=== PATIENT | female | born 1970 | race Caucasian/White ===

== ENCOUNTER 2018-09-28 10:04 | Outpatient (RCR) | payer SELFPAY ==
--- NOTE | 2018-09-30 07:40 | HP.OTEVAL ---
Patient's Visit Information SORAYA WALTERS is a 48 year old F, referred to Occupational Therapy by Moise Carias, JAYJAY-Subha, with a diagnosis of Lymphedmea. Date of Evaluation: 09/28/18 Occupational Therapist: Kaylee Gamboa, YANET/Tracy, CHT - Subjective Subjective: This 48 year old female was seen for inital OT eval for LE lymphedema, pt states she noticed swelling about 2 years ago, but swelling would go down when she would sleep- now edema does not go down. Pt states she got her velcro compression garments [place] wraps and she does wear them but make it difficult to walk. pt states she sleeps in a bed- and legs do go down a little. Pt states her left LE is more bothersome than her right. - Lymphedema (Circumferential Measure) Mid-foot: Right 28cm left 30cm Ankle: Right 33cm left 34cm Lower calf: Right 39cm left 38cm Largest calf: Right 75cm left 74cm Below knee: Right 60Cm left 71cm Lower Exremity Comments: pt demo with large skin folds on upper calf region which would make it difficult for pt to find off the shelf compression hose. - Lower Limb Functional Index Lower Extremity Functional Score: 35 - Goals Demonstrate a 20% reduction in edema by d/c: Yes Demonstrate adequate knowledge of self-massage by 2nd week: Yes Demonstrate adequate knowledge skin care/prec by 2nd week: Yes Demonstrate adequate knowledge therapeutic exercises by d/c: Yes Select approp compression garment w/donning/care/wear by d/c: Yes Voice need to replace compression garment every 4-6mo by dc: Yes - Rehabilitation General Assessment: Pt demo with stage II lymphedema of LE. Pt demo need for skilled OT service 1-3 visits to ed. pt on lymphedema mtg and HEP to ensure follow through. Today pt was ed. on lymph system physiology, mtg, use of compression garments during the day. Therapist ed. Pt on compression socks during the day as wrap is too bulky. Therapist ed. Pt use of the wraps will help decrease limb size to fit in off the shelf compression garments. Therapist ed. Pt on water aerobics to assist with fluid circulation. Pt was given handouts and demo understanding of lymphedema mtg and agree to POC. Rehabilitation Potential: Good - Anticipated Interventions Anticipated Interventions: Education re Diagnosis, Manual Lymph Drainage, Education re Life-long lymphedema Management, Education re Skin Care and Precautions, Education re Self Massage Techniques, Education re Correct Donning Tech,Care&Wearing Sched Comp Garments - Visit Plan Frequency: 2-3 visits TEXT: Thank you for the opportunity to evaluate your patient. For Medicare and Medicare HMO plans, please review the plan of care and approve it. It will need to be FAXED BACK to us at [phone] for Medicare purposes. Please let me know if there are questions or concerns regarding this plan of care. Physician Signature: Date:
--- NOTE | 2018-11-14 12:39 | HP.OT.NRP ---
HP - Discharge Summary - Patient Information SORAYA WALTERS was seen in my office for initial evaluation on 09/28/18. The following Plan of Care was established for this patient: Initial Frequency: 2-3 visits - Anticipated Interventions Anticipated Interventions: Education re Diagnosis, Manual Lymph Drainage, Education re Life-long lymphedema Management, Education re Skin Care and Precautions, Education re Self Massage Techniques, Education re Correct Donning Tech,Care&Wearing Sched Comp Garments This patient was last seen in our office 09/28/18. Pertinent comments regarding their Occupational therapy will appear below: Pt was seen for OT eval only with Dx of lymphedema. pt has not scheduled further apts and is d/c due to time lapse in services. At this point I will be discontinuing this patient from occupational therapy. I would be happy to see this patient again in the future if found appropriate by the physician. Thank you! Kaylee Gamboa, OTR/L, CHT
== END 2018-09-28 19:00 | disposition home or self-care (01) ==
LOC: OT 10:04
PROVIDERS: Family Provider Nurse Practitioner Family; PCP Nurse Practitioner Family; Referring Provider Nurse Practitioner Family; Visit Provider Nurse Practitioner Family
DX: I89.0 Lymphedema, not elsewhere classified (principal)
CPT/HCPCS: 97166; 97530

== ENCOUNTER 2024-09-01 11:30 | Outpatient (RCR) | payer SELFPAY ==
--- NOTE | 2024-08-03 13:56 | HP.PTEVAL_ITS ---
Patient's Visit Information Visit Information Visit Information: SORAYA WALTERS is a 54 year old F referred to Physical Therapy by Dr. Amado Rodríguez MD with a diagnosis of B knee OA, pain. Date of Evaluation: 08/03/24 Physical Therapist: Carlos Platt, DPT, OCS, CSCS Visit Plan Frequency: 3x /Week Duration: 4-6 Weeks Plan: 3x/week x 4-6 weeks for AT for LE and core strength and HS and gastroc st retches and calorie burning to I. Work to I community pool program. EG to recheck in 4 weeks. Subjective Subjective: I need knee replacements on B knees and needs to get stronger. I need to strengthen adn lose weight prior. Pain in knees is 8/10 B when walking R >L. Sitting is relatively comfortable. Sleep is not interrupted much. No problem in out of bed. Dressing is fine. bathroom and shower I. Has electric WC due to knees. Doesn't use it alot but it is a long walk back to [facility]. Live with , one story without steps, has ramp. Walks in community if not going too far. Only limited due to knee pain. Has been painful for years. Not employed, Paints crafty for fun. Does them sitting. No regular exercise. No ex for knees, no previous water ex. Pain B knees: Pain Intensity (Out of 10): 0 Pain Intensity Range: 0 and 8 Objective Objective: L 100 and R 81 with full ext B in knees. Hip AROM WFL to 0 ext and 20 abd. Rotations fucnitonal. reflexes 1/3 patella adn achilels B. Sensation LE WNL to gross light touch. strenth hips 3/5 abd and flexion and ext, core 3/5 abs and ext. knees 4/5 with pain with ext, 4/5 flexion. ankles 4/5 [address] directions. Very large girth and makes her walking trendelenberg, wide ZITA but does have some knee flexion at swing B. I with gait with good balance without AD today but limited to 100 feet due to pain increasing from 0 at sitting to 5/10 after 100 feet. trasnfers chair and bed I. HS length at -20 90/90 test. Gastroc to 0 DF. Posture is forward head and kyphotic thoracic. Gets around well considering her large girth. Balance/Special Test Scores Lower Extremity Functional Score: 19 Goals Goal 1:: I in appropriate pool core and LE strnegth and calorie burning for community pool Goal Time Frame: 4-6 Weeks Goal 2:: Pain in knees 2/10 at worst with 200 feet walking adn 50% betteer. Goal Time Frame: 4-6 Weeks Rehabilitation Potential Physical Therapy Diagnosis: Knee pain and limited ROM causing difficulty with mobility Rehabilitation Potential: Questionable Anticipated Interventions Patient/Client Instruction: Educate patient on: Condition and Plan of Care For the Purpose of:: To decrease pain, To improve muscle performance and motor function, To increase tolerance to activity/condition/position, To improve ability of physical actions for home/community/work/leisure and To improve gait and locomotor functions Therapeutic Exercise to Include: Strength training, Flexibilty training, In an aquatic setting, Passive ROM and Active ROM For the Purpose of:: To decrease pain, To increase ROM, To improve nutrient deli very to tissue, To improve muscle performance and motor function and To increase tolerance to activity/condition/position Text: Thank you for the opportunity to evaluate your patient. For Medicare and Medicare HMO plans, please review the plan of care and approve it. It will need to be FAXED BACK to us at [phone] for Medicare purposes. For Medicare only, by signing this I certify the plan of care. Please let me know if there are questions or concerns regarding this plan of care. Physician Signature: Date:
--- NOTE | 2024-11-06 15:31 | HP.PT.NRP ---
Patient Information Patient Information: SORAYA WALTERS was seen in my office for initial evaluation on 08/03/24. The following Plan of Care was established for this patient: POC Established Initial Frequency: 3x /Week Initial Duration: 4-6 Weeks Anticipated Interventions Patient/Client Instruction: Educate patient on: Condition and Plan of Care For the Purpose of:: To decrease pain, To improve muscle performance and motor function, To increase tolerance to activity/condition/position, To improve ability of physical actions for home/community/work/leisure and To improve gait and locomotor functions Therapeutic Exercise to Include: Strength training, Flexibilty training, In an aquatic setting, Passive ROM and Active ROM For the Purpose of:: To decrease pain, To increase ROM, To improve nutrient delivery to tissue, To improve muscle performance and motor function and To increase tolerance to activity/condition/position Last Seen Last Seen: This patient was last seen in our office 09/01/24. Pertinent comments regarding their Physical therapy will appear below: Pt seen 11 visits of pool therapy POC but did not return for reevaluation of progress. At this point, it has been over 2 months and I will discontinue from my care. At this point I will be discontinuing this patient from physical therapy. I would be happy to see this patient again in the future if found appropriate by the physician. Thank you! Carlos Platt, DPT, OCS, CSCS Balance/Gait/Functional tests Balance/Special Test Scores Lower Extremity Functional Score: 19
== END 2024-09-01 19:00 | disposition home or self-care (01) ==
LOC: PT 11:30
PROVIDERS: PCP Student in an Organized Health Care Education/Training Program; Referring Provider Specialist; Visit Provider Specialist
DX: M25.561 Pain in right knee (principal); M25.562 Pain in left knee; M17.0 Bilateral primary osteoarthritis of knee
CPT/HCPCS: 97110; 97113; 97161